=== PATIENT | male | born 1985 | race Caucasian/White ===

== ENCOUNTER 2020-11-20 12:49 | Emergency (ER) | payer SELFPAY ==
--- NOTE | 2020-11-20 17:30 | ER ---
Nurse's Notes [facility] [place] Name: Gino Gabriel Age: 35 yrs Sex: Male : 1985 Arrival Date: 11/20/2020 Time: 12:53 Bed Waiting Private MD: Diagnosis: Presentation: 11/20 12:59 Chief complaint: Patient states: Pain behind L ear for 3 days. Noticed yesterday hb everything's tastes a little funny, drinks and food. Today, L side of his face wont move well. Grasps equal, gait steady. Coronavirus screen: Client denies travel out of the [place] in the last 14 days. headache, loss of taste or smell, Client presents with at least one sign or symptom that may indicate coronavirus-19. Standard/surgical mask placed on the client. At this time, the client does not indicate any symptoms associated with coronavirus-19. Ebola Screen: Patient denies travel to an Ebola-affected area in the 21 days before illness onset. No acute neurological deficit is noted. Initial Sepsis Screen: Does the patient meet any 2 criteria? No. Patient's initial sepsis screen is negative. Does the patient have a suspected source of infection? No. Patient's initial sepsis screen is negative. Risk Assessment: Do you want to hurt yourself or someone else? Patient reports no desire to harm self or others. Onset of symptoms was November 18, 2020. 12:59 Method Of Arrival: Ambulatory hb 12:59 Acuity: JEWEL 3 hb Stroke Activation: Physician: Stroke Attending; Name: ; Notified At: ; Arrived At: Physician: Chief Stroke Resident; Name: ; Notified At: ; Arrived At: Physician: Stroke Resident; Name: ; Notified At: ; Arrived At: Physician: ED Attending; Name: ; Notified At: ; Arrived At: Physician: ED Resident; Name: ; Notified At: ; Arrived At: 12:59 n/a hb Historical: - Allergies: 13:03 NSAIDS; hb - PMHx: 13:03 None; hb - PSHx: 13:03 Appendectomy; eye; hb - Immunization history:: Flu vaccine is not up to date. - Social history:: Smoking status: Patient reports the use of cigarette tobacco products, smokes one-half pack cigarettes per day. Vital Signs: 12:59 BP 151 / 109; Pulse 66; Resp 16; Temp 98.7; Pulse Ox 99% ; Weight 92.99 kg; Height 6 hb ft. 2 in. (187.96 cm); Pain 3/10; 12:59 Body Mass Index 26.32 (92.99 kg, 187.96 cm) hb ED Course: 12:53 Patient arrived in ED. as 12:59 Arm band placed on. hb 13:03 Triage completed. hb Administered Medications: No medications were administered Outcome: 17:29 Patient left the ED. hb Signatures: Courtney Dickerson as Maritza Pan, RN RN hb
[2020-11-20 17:37] VITALS: BP 151/109; TEMP 98.7; O2SAT 99
== END 2020-11-20 17:29 | disposition left against medical advice (07) ==
LOC: ER 12:49
DX: Z02.9 Encounter for administrative examinations, unspecified (principal)
CPT/HCPCS: 99281